=== PATIENT | male | born 1995 | race African-American/Black ===

== ENCOUNTER 2021-10-08 05:15 | Emergency (ER) | payer OTHER ==
[~2021-10-08] VITALS: Ht 177.8 cm; Wt 61.2 kg
[2021-10-08 07:15] VITALS: BP 126/74
== END 2021-10-08 07:35 | disposition home or self-care (01) ==
LOC: ER 05:15
DX: N43.3 Hydrocele, unspecified (principal); F12.10 Cannabis abuse, uncomplicated
CPT/HCPCS: 76870

== ENCOUNTER 2024-05-07 01:48 | Emergency (ER) | payer OTHER ==
[~2024-05-07] VITALS: Ht 167.6 cm; Wt 68.1 kg
--- NOTE | 2024-05-07 03:25 | ED.PDOC ---
General HPI Comments THIS IS A 29-YEAR-OLD MALE PRESENTS TO THE ED CHIEF COMPLAINT TESTICULAR PAIN. PT C/O LEFT TESTICLE PAIN AND SWELLING FOR 3 DAYS. PT DENIES ANY URINARY PAIN/DIFFICULTY, INJURY, FEVER OR CHLLS. PATIENT STATES SEVERAL EPISODES IN THE PAST ONLY LASTED FOR 1 DAY AND SWELLING WENT DOWN Chief Complaint: Testicle Pain Time Seen by MD: 01:58 Reviewed notes: Nurses Notes, Medications, Allergies Allergies: Coded Allergies: Codeine (Verified Allergy, Unknown, 05/07/24) Information Source: Patient Mode of Arrival: Ambulatory Past Medical History PAST MEDICAL HISTORY: Denies Surgical History: Denies all surgeries Family History Family History: Reviewed,noncontributory to illness Social History Smoker: Non-Smoker Alcohol: Denies ETOH Use Drugs: Marijuana Lives In: Home Constitutional: denies: chills, diaphoresis, fatigue, fever, malaise, sweats, weakness, others EENTM: denies: blurred vision, double vision, ear bleeding, ear discharge, ear drainage, ear pain, ear ringing, eye pain, eye redness, hearing loss, mouth pain, mouth swelling, nasal discharge, nose bleeding, nose congestion, nose pain, photophobia, tearing, throat pain, throat swelling, voice changes, others Respiratory: denies: cough, hemoptysis, orthopnea, SOB at rest, shortness of breath, SOB with excertion, stridor, wheezing, others Cardiovascular: denies: chest pain, dizzy spells, diaphoresis, Dyspnea on exertion, edema, irregular heart beat, left arm pain, lightheadedness, palpitations, PND, syncope, others Gastrointestinal: denies: abdomen distended, abdominal pain, blood streaked bowels, constipated, diarrhea, dysphagia, difficulty swallowing, hematemesis, melena, nausea, poor appetite, poor fluid intake, rectal bleeding, rectal pain, vomiting, others Genitourinary: reports: testicle pain (LEFT), testicle swelling (LEFT); denies: burning, dysuria, flank pain, frequency, hematuria, incontinence, penile discharge, penile sore, pain, urgency, others Neurological: denies: dizziness, fainting, headache, left sided numbness, left sided weakness, numbness, paresthesia, pre-existing deficit, right sided numbn ess, right sided weakness, seizure, speech problems, tingling, tremors, weakness, others Musculoskeletal: denies: back pain, gout, joint pain, joint swelling, muscle pain, muscle stiffness, neck pain, others Integumetry: denies: bruises, change in color, change in hair/nails, dryness, laceration, lesions, lumps, rash, wounds, others Allergic/Immunocompromised: denies: Difficulty Healing, Frequent Infections, Hives, Itching, others Hematologic/Lymphatic: denies: anemia, blood clots, easy bleeding, easy bruising, swollen glands, others Endocrine: denies: excessive hunger, excessive sweating, excessive thirst, excessive urination, flushing, intolerance to cold, intolerance to heat, unexplained weight gain, unexplained weight loss, others Psychiatric: denies: anxiety, bipolar disorder, depression, hopeless, panic disorder, schizophrenia, sleepless, suicidal, others Physical Exam General Appearance: No Apparent Distress, Normal HEENT: Pharynx Normal Neck: Full Range of Motion, Non-Tender Respiratory: Lungs Clear, No Respiratory Distress, Normal Breath Sounds Cardiovascular: No Murmur, Normal Peripheral Pulses, Regular Rate/Rhythm Breast Exam: Deferred Gastrointestinal: Non Tender, Soft Genitalia: Testicle (LEFT TESTICLE EDEMATOUS WITH SEVERE TENDERNESS ON PALPATION, NON NECROTIC APPEARING. NO NOTED LESIONS. + CREMATERIC REFLEX RIGHT SLUGGISH ON LEFT) Pelvic: Deferred Rectal: Deferred Extremities: Normal capillary refill, Normal inspection, Normal range of motion, Non-tender, No pedal edema Musculoskeletal : Apperance: Normal Neurologic: Alert, client evaluator II-XII nml as Tested, No Motor Deficits, Normal Affect, Normal Mood, No Sensory Deficits Cerebellar Function: Normal Reflexes: Normal Skin: Dry, Normal Color, Warm Lymphatic: No Adenopathy Was a procedure done? Was a procedure done?: Yes Sedation Sedation?: No Informed consent obtained: Yes Other Procedure Procedure MANIPULATION OF LEFT TESTICULAR TORSION Indication LEFT TESTICULAR TORSION Anesthetic NONE Prep MORPHINE 2 MG FOR PAIN Success BY DR. WASHBURN, PATIENT STILL REPORTS PAIN NOTES NO RELIEF IN PAIN OR PRESSURE UNKNOWN IF SUCCESSFUL. LEFT TESTICLE NON NECROTIC Differential Diagnosis Kidney stone (Female): N/A Urinary Problem (Male): Epididymitis, Prostatitis X-Ray, Labs, Meds, VS Vital Signs Date Time Temp Pulse Resp B/P (MAP) Pulse Ox O2 Delivery O2 Flow Rate FiO2 05/07/24 03:23 98.4 68 17 120/54 (76) 98 98.4 05/07/24 03:23 68 17 98 Room Air 05/07/24 02:00 98.4 82 16 113/72 (86) 99 Current Medications Medications (Trade) Dose Ordered Sig/[place] Route Start Time Stop Time Status Last Admin Ketorolac Tromethamine (Toradol Injection) 60 mg ONCE ONCE IM 05/07/24 03:30 05/07/24 03:31 DC 05/07/24 03:36 X-Ray, Labs, Meds, VS Comment PATIENT GIVEN TORADOL 60 MG IM AND ICE APPLIED TO LEFT TESTICLE. YOUR SOUND ORDER PLACED 0229. HOUSE CLEANER SUPERVISOR PAGED ON-CALL, CALL PLACED AT 0230, HOUSE CLEANER SUPERVISOR STATED SHE WAS ON HER WAY.. ULTRASOUND RESULTS LEFT TESTICULAR TORSION. STAT TRANSFER PLACED. [facility] DENIED ACCEPTANCE THIS A.M. THERE AT FULL CAPACITY. [facility] TRANSFER SERVICE PAGED STATED THEY NEED PAPERWORK AND FACE SHEET PRIOR TO ACCEPTANCE FAXED OVER 0508 TALKED TO ER PHYSICIAN WITH [facility] RE[facility]USED TRANSFER SAYING THEY ARE AT FULL CAPACITY AT THIS TIME. 0526 [facility] ACCEPTED PATIENT FOR TRANSFER, PEER-PEER GIVEN TO DR. JULIAN TRANSFER [facility] CALLED, [place] REFUSED DUE TO WEATHER. 0600 TRANSFER [facility] CALLED, REACH AT 0605, REFUSED TRANSPORT DUE TO WEATHER 0613 PATIENT TO GO S CALLED AT 6:15 A.M. US IMPRESSION: 1. Left testis appears hypoechoic No blood flow is seen in the left testis, probable torsion. 2. Possible right hydrocoele 3. Scrotal skin appears thickened. Electronically Signed 05/07/2024 05:31 Wayne Bragg Time of 1ST Reevaluation: 04:57 Reevaluation 1ST: Improved Patient Education/Counseling: Diagnosis, Treatment, Prognosis, Need For Follow Up Family Education/Counseling: No Family Present Departure 1 Departure Time of Disposition: 04:57 Impression: Primary Impression: Left testicular torsion Disposition: 04 INTERMEDIATE CARE FACILITY Condition: Stable Discharged With: Self Critical Care Note Critical Care Time?: No Stability Stability form required: BERTA Lockhart May 07, 2024 03:25
[2024-05-07] MEDS: KETOROLAC TROMETH 60MG/2ML VIAL IM ONE (03:36)
--- NOTE | 2024-05-07 05:32 | DVH ---
Critical Findings Examination: TESUS CLINICAL INDICATION: LEFT TESTICULE PAIN AND SWELLING COMPARISON: None. TECHNIQUE: Duplex and color flow imaging as well as real time montalvo-scale imaging of the scrotum and t esticles was performed. FINDINGS: Right Scrotum: Testis: It measures 3.4 x 2.3 x 3 cm. Epididymis: It measures 2.4 cm. Hydrocele: Possible. Left Scrotum: Testis: It measures 3 x 3.9 x 2.9 cm. Epididymis: It measures 1.4 cm. Hydrocele: Not seen. Right testes show normal and homogenous echotexture. Left testis appears hypoechoic No blood flow is seen in the left testis, probable torsion. Right testis reveals normal blood flow. No focal area of abnormality is seen. No calcification is noted. Both epididymides are normal. No evidence of varicocele is noted. The spermatic cord on either side appears normal. Scrotal skin appears thickened. IMPRESSION: 1. Left testis appears hypoechoic No blood flow is seen in the left testis, probable torsion. 2. Possible right hydrocoele 3. Scrotal skin appears thickened. Electronically Signed 05/07/2024 05:31 Wayne Bragg
[2024-05-07] MEDS: MORPHINE SULFATE INJ 2 MG/ml SYRG IV ONE (05:47)
[2024-05-07 07:06] VITALS: BP 126/71; PULSE 60; RESP 17; TEMP 98.2; O2SAT 98
== END 2024-05-07 07:32 | disposition short-term general hospital (02) ==
LOC: ER 01:48
DX: N44.00 Torsion of testis, unspecified (principal); Z88.5 Allergy status to narcotic agent
CPT/HCPCS: 54600; 76870; 96372; 99285; J1885; J2270